=== PATIENT | male | born 1975 | race African-American/Black ===

== ENCOUNTER 2017-11-30 15:27 | Emergency (ER) | payer MEDICAID | END 2017-11-30 16:27 | disposition home or self-care (01) | LOC: D.ER 15:27 | DX: K04.7 Periapical abscess without sinus (principal); K08.89 Other specified disorders of teeth and supporting structures; F17.200 Nicotine dependence, unspecified, uncomplicated ==

== ENCOUNTER 2020-01-05 09:20 | Emergency (ER) | payer SELFPAY ==
[~2020-01-05] VITALS: Ht 175.3 cm; Wt 68.2 kg
[2020-01-05 09:26] VITALS: Ht 175.3 cm; Wt 68.2 kg
[2020-01-05 10:06] LABS: BASOPHILS 0.7 % (0-2); EOSINOPHILS 1.2 % (0-7); HEMATOCRIT 38.2 % (42.0-54.0); HEMOGLOBIN 12.9 g/dL (13.5-17.5); IMMATURE GRANULOCYTES 0.3 % (0-5); LYMPHOCYTES 26.1 % (15-50); MCH 28.1 pg (26.0-34.0); MCHC 33.8 g/dL (31.0-37.0); MCV 83.2 fL (80.0-100.0); MEAN PLATELET VOLUME 8.5 fL (7.4-10.4); MONOCYTES 8.5 % (2-11); NEUTROPHILS 63.2 % (40-80); PLATELET COUNT 358 10x3/uL (130-400); RBC 4.59 10x6/uL (4.20-6.10); RDW 13.5 % (11.5-14.5)
[2020-01-05 10:13] LABS: ANION GAP 11.8 mmol/L (8-16); CALCIUM 9.6 mg/dL (8.5-10.1); CARBON DIOXIDE 27.4 mmol/L (21.0-32.0); CREATININE - SERUM 1.2 mg/dL (0.6-1.3); POTASSIUM - SERUM 4.2 mmol/L (3.5-5.1)
[2020-01-05 10:19] LABS: ALBUMIN 3.7 g/dL (3.4-5.0); BILIRUBIN - TOTAL 0.52 mg/dL (0.2-1.3); PROTEIN - SERUM 8.8 g/dL (6.4-8.2)
[2020-01-05 12:40] VITALS: BP 122/73
== END 2020-01-05 12:35 | disposition other institution (70) ==
LOC: D.ER 09:20
PROVIDERS: Family Medicine
DX: J39.0 Retropharyngeal and parapharyngeal abscess (principal); R25.2 Cramp and spasm